=== PATIENT | male | born 1965 | race Caucasian/White ===

== ENCOUNTER 2017-06-26 20:03 | Emergency (ER) | payer OTHER ==
[~2017-06-26] VITALS: Ht 190.5 cm; Wt 122.3 kg
[~2017-06-26 20:03] MED LIST: ANDROGEL75 GM TD; ATORVASTATIN CA40 MG PO; CLONIDINE HCL0.2 MG PO; Exforge 10/320 PO; FLEXERIL10 MG PO; LIPITOR40 MG PO; LORTAB 5-325 M1 EACH PO; Levothroid,Synthroid PO; Lipitor PO; PREDNISONE10 MG PO; SIMVASTATIN40 MG PO; SKELAXIN800 MG PO; SYNTHROID75 MCG PO; Treximet 85-500 PO; VALSARTAN-HCTZ1 EAC4 PO; Vytorin 10/40 PO
[2017-06-26] MEDS ORDERED: BENADRYL50 MG PO (23:12)
[2017-06-26] MEDS ORDERED: PREDNISONE20 MG PO (23:12)
[2017-06-26] MEDS ORDERED: PEPCID20 MG PO (23:12)
[2017-06-26] MEDS ORDERED: EPIPEN ADU0.3 MG/0.3 IM (23:12)
[2017-06-26 23:57] VITALS: BP 149/87
== END 2017-06-26 23:57 | disposition home or self-care (01) ==
LOC: EME → EDBD 20:03 → EME 23:57
DX: T63.481A Toxic effect of venom of other arthropod, accidental (unintentional), initial encounter (principal); K21.9 Gastro-esophageal reflux disease without esophagitis; I10 Essential (primary) hypertension; E78.5 Hyperlipidemia, unspecified; E03.9 Hypothyroidism, unspecified